=== PATIENT | female | born 1975 | race Caucasian/White ===

== ENCOUNTER 2024-05-28 00:17 | Outpatient (CLI) | payer MEDICAID, SELFPAY ==
--- NOTE | 2024-05-28 | DI.MAMMO_ITS ---
Exam(s) MAMMO SCREENING EXAM: MAMMO SCREENING CLINICAL HISTORY: Z12.31 Screening TECHNIQUE: Mammograms were interpreted according to the usual protocol including computer analysis w [employer] CAD system, tomosynthesis and C-view imaging. COMPARISON: No exams were available for comparison. Baseline examination. FINDINGS: The breasts are composed of scattered fibroglandular densities, Breast Density category B. No suspicious masses or suspicious microcalcifications are seen. No skin thickening or abnormal axillary lymph nodes are seen. IMPRESSION: BI-RADS Category 1, Negative mammogram Yearly screening mammography is recommended. Breast Density - Category B, scattered fibroglandular densities. A negative radiographic report should not delay biopsy if a dominant or clinically suspicious mass is present. Up to ten percent of cancers are not identified on mammography. A negative report may reinforce clinical impression. Adenosis and dense breasts may obscure an underlying neoplasm. False positive reports average 6 to 10%. Patient will receive a letter notifying them of these results.
== END 2024-05-28 00:37 ==
LOC: DI 00:17
PROVIDERS: Visit Provider Family Medicine
DX: Z12.31 Encounter for screening mammogram for malignant neoplasm of breast (principal); R92.323 Mammographic fibroglandular density, bilateral breasts
CPT/HCPCS: 77063; 77067

== ENCOUNTER 2024-08-13 09:53 | Day surgery (SDC) | payer MEDICAID, SELFPAY ==
--- NOTE | 2024-08-12 22:07 | W.PM.DSUDISC ---
Date of service: 08/13/24 Discharge Plan Disposition Patient Disposition: Home Condition: Good Discharge Details Reason For Visit: screening colonoscopy Attending Provider: Fabien Sanders Primary Care Provider: Keira Jacobsen Home Meds and New Rx's Prescriptions: Continued lysine [L-Lysine] 500 mg tablet 1,000 mg PO DAILY vitamin B complex Capsule 1 cap PO DAILY herbal immune boosters PO mushroom tinctures PO Discontinued bisacodyl [Dulcolax (bisacodyl)] 5 mg tablet,delayed release (DR/EC) 5 mg PO ONCE Qty: 4 0RF Rx Instructions: Take per colonoscopy instructions provided by ordering providers office polyethylene glycol 3350 17 gram/dose powder 17 g PO ONCE Qty: 238 0RF Rx Instructions: Take per colonoscopy instructions provided by ordering providers office Discharge Instructions Additional Instructions: Kathleen, it was nice meeting you today, and I hope you make a quick recovery after the procedure. Things went very smoothly. Your prep was outstanding, we could see everything fine. Your colonoscopy today was totally normal. Based on these findings, and your history, I recommended 10-year interval for your next screening colonoscopy. If you need anything or have any questions at all, please do not hesitate to ask at any point 1. If tolerated, consume a soft, low fiber diet for 1-2 days. 2[address] Do not drive, drink alcohol, operate machinery, make critical decisions, or do activities that require coordination or balance for 24 hours. 3. Because air was put into your colon during the procedure, expelling air from your rectum (passing gas or farting) is normal. 4. You may not have a bowel movement for 1-3 days because of the colonoscopy prep. This is normal. 5. Go directly to the emergency room if you notice any of the following: Develop chills (warm to touch), or if you have a thermometer and your temperature is above 101 Difficulty breathing or difficultly swallowing Persistent vomiting Severe abdominal pain, other than gas cramps Severe chest pain Black, tarry stools Any bleeding ? exceeding one tablespoon 6. Call your physician if the site where your intravenous was started becomes red, swollen, painful, and warm to touch. 7. Your physician has reviewed your pre-procedure medications. Please continue to take those medications as previously ordered. You will be given specific information/education regarding any changes to your medications before leaving. Activity:: Activity as Tolerated Diet:: As Tolerated Discharge Orders Discharge Orders: Discharge Order (Routine); Ordered 08/12/24 Ordered By: Fabien Sanders DS: Diagnosis Discharge Diagnosis (1) Encounter for screening colonoscopy: Status: Acute Asessment and Plan: Negative screening colonoscopy, recommend 10-year interval screening
--- NOTE | 2024-08-12 22:08 | W.COLOREPORT ---
Date of service: 08/13/24 Time of Service: 12:59 Colonoscopy Report Date of procedure: 08/13/24 Pre-op diagnosis general: screening colonoscopy Post-op diagnosis procedure note: other (Negative screening colonoscopy) Procedure: colonoscopy Surgeon: Fabien Sanders Anesthesia Type: General:No Airway Estimated blood loss (mL): 0 Pathology: none sent Complications: None Disposition: same day Indications: Kathleen is a 48 year old woman who needs a screening colonoscopy Prep: Miralax/Dulcolax Procedure Start Time: 12:33 Procedure End Time: 12:48 Retraction Time: 6 Findings: Negative screening colonoscopy Procedure Description: After the induction of anesthesia, and with the patient in left lateral decubitus position, I began by performing an external anorectal exam.? Perineum and skin were normal, as was the anal verge.? There was no evidence of external hemorrhoids.? Next, I performed a digital rectal exam.? I did not appreciate any abnormal findings.? Next, I advanced a colonoscope into the rectal vault.? I performed retroflexion.? This appeared normal.? Using insufflation, I then advanced the colonoscope beyond the rectal folds and into the sigmoid colon before advancing towards the cecum.? The quality of the prep was outstanding.? The scope was noted to be in the cecum by identification of the ileocecal valve and appendiceal orifice.? I then began withdrawing the colonoscope using repeated irrigation as necessary for full evaluation of the colonic mucosa. ?Once the scope was withdrawn to the level of the rectum, great care was taken to examine portions of the rectal folds.? I saw no signs of tumors, polyps, nor any other pathology. Finally, the scope was withdrawn and the patient was brought to the same-day surgery recovery unit as the anesthetic wore off. ?The findings and instructions were shared with the patient prior to discharge. [place] Bowel Prep [place] Bowel Prep Right Colon: 3 Left Colon: 3 Transverse Colon: 3 Total Score: 9
[2024-08-13 10:15] VITALS: BP 99/66; PULSE 76; RESP 17; TEMP 36.5; O2SAT 99
[2024-08-13] MEDS: Lactated Ringers 1,000 ML 80 ML IV (10:25)
--- NOTE | 2024-08-13 10:44 | W.ANESPRE ---
General Info Date of Service Date Performed: 08/13/24 Height: 5 ft 2 in Weight: 50.6 kg Body Mass Index (BMI): 20.4 Surgical Procedure: Operation Date: 08/13/24 11:35 Proposed Procedure Side Surgeon ben Sanders MD Meds Allergies and Home Medications Allergies Allergy/AdvReac Type Severity Reaction Status Date / Time Sulfa (Sulfonamide Allergy Unknown none noted Verified 08/13/24 10:17 Antibiotics) on referral Home Medication ?Medication ?Instructions ?Recorded herbal immune boosters PO 06/17/24 lysine 500 mg tablet (L-Lysine) 1,000 mg PO DAILY 06/17/24 mushroom tinctures PO 06/17/24 vitamin B complex 1 cap PO DAILY 06/17/24 Current Visit Medications: Current Medications Generic Name Dose Route Start Last Admin Trade Name Freq PRN Reason Stop Dose Admin Ringer's Solution 1,000 mls @ 80 mls/hr 08/13/24 06:00 08/13/24 10:25 IV 08/13/24 23:59 80 mls/hr INFUSION VITO Administration IV Miscellaneous Supplies 1 each 08/13/24 06:00 Iv Access IV 08/13/24 23:59 DIRECTED VITO Ondansetron HCl 4 mg 08/12/24 22:09 Ondansetron 4 Mg/2 Ml Vial IVP 09/11/24 22:08 Q4H PRN PRN Nausea / Vomiting Sodium Chloride 0 ml 08/13/24 06:00 Normal Saline Flush 10 Ml Syr IV 08/13/24 23:59 PRN PRN Sodium Chloride 0 ml 08/13/24 06:00 Normal Saline 10 Ml Vial IJ 08/13/24 23:59 DIRECTED PRN Sterile Water 0 ml 08/13/24 06:00 Water,Injection,Sterile 10 Ml Vial IJ 08/13/24 23:59 DIRECTED PRN PFSH Active Problems Active Problems: Problem Status Onset Code Increased bowel frequency Acute R19.4 Change in bowel habits Acute R19.4 Surgical History Surgical History (Updated 08/13/24 @ 10:19 by Jo Ann Capps RN) Hx of tubal ligation Tobacco Smoking/Tobacco Use Status: Never Alcohol Alcohol Intake: current Alcohol intake frequency: a few times a week Substance Use Substance use: Daily Substance use type: marijuana Details: denies last 24 hour use Vital Signs and Lab Results Vital Signs Most Recent Vital Signs in EMR: Most Recent Vital Signs Temp Pulse Resp BP Pulse Ox 36.5 C 76 17 99/66 L 99 08/13/24 10:15 08/13/24 10:15 08/13/24 10:15 08/13/24 10:15 08/13/24 10:15 Anesthesia Assessment and Plan Anesthesia History Personal History: No History of Anesthesia Complications Family History: No Family History of Anesthesia Complications Exercise Tolerance Exercise Tolerance: Metabolic Equivalents>4 Pertinent Negatives Pertinent Negatives: No Symptoms of GERD, No Major Cardiovascular Symptoms or Complaints, No Major Pulmonary Symptoms or Complaints and No History of CVA/TIA Cardiac & Pulmonary Exam Cardiac Exam: Normal S1/S2 Heart Sounds Pulmonary Exam: Clear Bilateral Breath Sounds Implantable Cardiac Device Does patient have a Pacemaker or an ICD?: No Airway Exam Known Difficult Airway: No Mallampati Class: 1 Mouth Opening: Normal (> 3cm) Thyromental Distance: Greater than 3 cm Neck Range of Motion: Full ROM Neck Circumference: Normal Teeth Condition: Normal Dentition ASA Classification ASA Score: ASA 2 Emergency Case?: No NPO Status NPO Status: NPO Clears >2 hours, Solids >8 hours Status Status: Negative HCG Anesthesia Plan Resuscitation Status: Full Code Anesthesia Technique: General Anesthesia Airway Planned: Natural Airway Monitors Used: Standard Monitors Preoperative Comments:: 48 y/o female with history of increased bowel frequency presents for colonoscopy screening. She denies a family history of colon cancer.
[2024-08-13 11:06] VITALS: BMI 20.4
[2024-08-13 12:53] VITALS: BP 95/63; PULSE 63; RESP 17; TEMP 36.6; O2SAT 97
--- NOTE | 2024-08-13 12:59 | W.ANESPOSTOP ---
Postoperative Evaluation Date, Time and Location Date Performed: 08/13/24 Time Performed: 12:56 Patient Location: Day Surgery Unit Vital Signs Most Recent Imported Vital Signs: Most Recent Vital Signs Temp Pulse Resp BP Pulse Ox 36.6 C 63 17 95/63 L 97 08/13/24 12:53 08/13/24 12:53 08/13/24 12:53 08/13/24 12:53 08/13/24 12:53 Pain Score Most Recent Pain Score: Most Recent Pain Score Pain Level 0 08/13/24 10:15 Assessment Mental Status: Awake (Alert & Oriented to Patient Baseline) Airway and Respiratory Function: Patent airway with normal (patient baseline) respiratory exam Cardiovascular Function: Hemodynamically Stable Hydration Status: Adequately Hydrated Nausea & Vomiting: No Nausea or Vomiting Pain: Pt. Denies Any Pain Peripheral Nerve Block: Patient did not receive a nerve block
[2024-08-13 13:17] VITALS: BP 108/75; PULSE 63; RESP 20; TEMP 36.4; O2SAT 65
== END 2024-08-13 14:03 | disposition home or self-care (01) ==
LOC: SUR 09:54
PROVIDERS: PCP Family Medicine; Visit Provider Surgery
PROC: 0DJD8ZZ Inspection of Lower Intestinal Tract, Via Natural or Artificial Opening Endoscopic (ICD-10-PCS; CPT 45378; principal; 2024-08-13 11:30)
DX: Z12.11 Encounter for screening for malignant neoplasm of colon (principal)
CPT/HCPCS: 45378; J2003; J2405; J2704